=== PATIENT | female | born 1990 | race Caucasian/White ===

== ENCOUNTER 2018-12-29 20:00 | Emergency (ER) | payer OTHER ==
--- NOTE | 2018-12-29 20:11 | EDM.PDOC ---
ED HPI GENERAL MEDICAL PROBLEM - General Chief Complaint: Laceration Stated Complaint: Laceration to left hand Time Seen by Provider: 12/29/18 20:00 Source of Information: Reports: Patient, RN, RN Notes Reviewed History Limitations: Reports: No Limitations - History of Present Illness INITIAL COMMENTS - FREE TEXT/NARRATIVE: Patient presents to the ED at [facility] for the evaluation of a laceration to the left hand. Patient states this is a work related injury. While at work, the patient states a shot glass slipped out of her hand. As she tried to grab the glass, it broke causing the laceration. Patient denies any numbness, tingling. or paresthesia to the LUE. Has full ROM of the left hand. No tendon involvement. Patient is not sure of her Tetanus status. Onset: Today Onset Date: 12/29/18 - Related Data Allergies Allergy/AdvReac Type Severity Reaction Status Date / Time amoxicillin [Amoxicillin] Allergy Cannot Verified 12/29/18 20:07 Remember Sulfa (Sulfonamide Allergy Cannot Verified 12/29/18 20:07 Antibiotics) Remember Cat Dander Allergy Severe Hives Uncoded 12/29/18 20:07 Home Meds: Home Meds medroxyPROGESTERone Acetate [Depo-Provera] 150 mg IM ASDIRECTED 03/14/14 [ History] Past Medical History - Past Health History Medical/Surgical History: Denies Medical/Surgical History Psychiatric History: Reports: Addiction Other Psychiatric History: ETOH abuse ED ROS GENERAL - Review of Systems Review Of Systems: See Below Constitutional: Denies: Fever, Chills Respiratory: Denies: Shortness of Breath, Cough Cardiovascular: Denies: Chest Pain, Palpitations Skin: Reports: Wound Neurological: Reports: No Symptoms ED EXAM, SKIN/RASH Exam: See Below Exam Limited By: No Limitations General Appearance: Alert, No Apparent Distress Respiratory/Chest: No Respiratory Distress, Lungs Clear, Normal Breath Sounds Cardiovascular: Normal Peripheral Pulses, Regular Rate, Rhythm Peripheral Pulses: 2+: Radial (L), Radial (R) Neurological: Alert, Oriented Skin: Wound/Incision (3cm vertical laceration to the lateral left hand just below the thumg; low grade venous ooze; will require suture closure for optimal wound healing) ED SKIN PROCEDURES - Laceration/Wound Repair Left Hand Lac/Wound length In cm: 3 Appearance: Subcutaneous, Linear, Clean Distal NVT: Neuro & Vascular Intact, No Tendon Injury Anesthetic Type: Local Local Anesthesia - Lidocaine (Xylocaine): 2% with EPI Local Anesthetic Volume: 5cc Skin Prep: Chlorhexidine (Hibiciens), Saline Exploration/Debridement/Repair: Wound Explored, In a Bloodless Field, Explored to Base, No Foreign Material Found Closed with: Sutures Suture Size: 4-0 Suture Type: Nylon, Interrupted, Simple Sterile Dressing Applied: Nurse Tetanus Status Addressed: Yes Complications: No Course - Vital Signs Last Recorded V/S: Last Vital Signs Temp 36.9 C 12/29/18 20:07 Pulse 78 12/29/18 20:07 Resp 16 12/29/18 20:07 BP 145/119 H 12/29/18 20:07 Pulse Ox 99 12/29/18 20:07 - Orders/Labs/Meds Orders: Active Orders 24 hr Category Date Time Status Vaccines to be Administered [RC] PER UNIT ROUTINE Care 12/29/18 20:38 Ordered Diphth,Pertuss(Acell),Tet Vac [Adacel] Med 12/29/18 20:38 Once 0.5 ml IM .ONCE ONE Meds: Medications Discontinued Medications Generic Name Dose Route Start Last Admin Trade Name Freq PRN Reason Stop Dose Admin Lidocaine/Epinephrine 20 ml 12/29/18 20:11 12/29/18 20:15 Xylocaine 2% With Epinephrine 1:100,000 INJECT 12/29/18 20:12 20 ml ONETIME ONE Administration Departure - Departure Time of Disposition: 20:38 Disposition: Home, Self-Care 01 Condition: Good Clinical Impression: Encounter related to worker's compensation claim, Need for Tdap vaccination Hand laceration Qualifiers: Encounter type: initial encounter Foreign body presence: without foreign body Laterality: left Qualified Code(s): S61.412A - Laceration without foreign body of left hand, initial encounter - Discharge Information *PRESCRIPTION DRUG MONITORING PROGRAM REVIEWED*: Not Applicable *COPY OF PRESCRIPTION DRUG MONITORING REPORT IN PATIENT LEIGHANN: Not Applicable Instructions: Laceration Care, Adult, Sutured Wound Care, VIS, Tetanus, Diphtheria (Td); Tetanus, Diphtheria, Pertussis (Tdap) - CDC Forms: ED Department Discharge Additional Instructions: 1. Stay well hydrated and rest 2. Keep area clean and dry at all times 3. Keep covered for the next 24 hours, then leave open to air, but cover if possibility of getting wet 4. Sutures to stay in for 10 days 5. See your PCP for suture removal and laceration recheck 6. Call us with any questions or concerns - Problem List Review Problem List Initiated/Reviewed/Updated: Yes - My Orders Last 24 Hours: My Active Orders 12/29/18 20:38 Vaccines to be Administered [RC] PER UNIT ROUTINE Diphth,Pertuss(Acell),Tet Vac [Adacel] 0.5 ml IM .ONCE ONE - Assessment/Plan Last 24 Hours: My Active Orders 12/29/18 20:38 Vaccines to be Administered [RC] PER UNIT ROUTINE Diphth,Pertuss(Acell),Tet Vac [Adacel] 0.5 ml IM .ONCE ONE Assessment:: Hand laceration Encounter for workers comp claim Plan: Laceration sutured closed. Tolerated procedure well, no complications. Keep area clean and dry. Will keep out of work for two days. Suture to be removed in 10 days. Tetanus updated. Return to ED at symptoms warrant
[2018-12-29] MEDS: Lidocaine 2% with EPINEPHrine 1:100,000 20 ML MDV INJECT ONE (20:15)
[2018-12-29] MEDS: Diphtheria,Pertussis(Acell),Tetanus Vaccine 0.5 ML Syringe IM ONE (20:43)
== END 2018-12-29 20:49 | disposition home or self-care (01) ==
LOC: VM.ED 20:00
DX: S61.412A Laceration without foreign body of left hand, initial encounter (principal); Z23 Encounter for immunization; Z88.1 Allergy status to other antibiotic agents; Z88.2 Allergy status to sulfonamides; W25.XXXA Contact with sharp glass, initial encounter
CPT/HCPCS: 12002; 90471; 90715; 99283-25

== ENCOUNTER 2020-06-03 14:47 | Emergency (ER) | payer SELFPAY ==
--- NOTE | 2020-06-03 17:13 | EDM.PDOC ---
ED HPI GENERAL MEDICAL PROBLEM - General Chief Complaint: Behavioral/Psych Stated Complaint: ER Time Seen by Provider: 06/03/20 14:57 Source of Information: Reports: Patient History Limitations: Reports: No Limitations - History of Present Illness INITIAL COMMENTS - FREE TEXT/NARRATIVE: Pt. presents to ER at request of [facility] in [place]. Pt. is set up to start inpatient alcohol treatment there on Wednesday. She states that she drinks at least a pint of whiskey a day and has for years. Denies any suicidal or homicidal ideation. Denies any chest pain or shortness of breath. Pt. states that her last drink was this AM, at which time she had one beer. She states that she did drink heavily last night. She has not been experiencing any nausea or vomiting, and is currently not experiencing any DTs, shakes or other signs of alcohol withdrawl. Denies any abdominal pain or burning. Denies any melena, hematochezia, or hematemesis. Onset: Today Location: Reports: Generalized Generalized Pain Score (Numeric/FACES): 5 - Related Data Allergies Allergy/AdvReac Type Severity Reaction Status Date / Time amoxicillin [Amoxicillin] Allergy Cannot Verified 06/03/20 15:17 Remember Sulfa (Sulfonamide Allergy Cannot Verified 06/03/20 15:17 Antibiotics) Remember Cat Dander Allergy Severe Hives Uncoded 06/03/20 15:17 Home Meds: Home Meds . [No Known Home Meds] 06/03/20 [History] Past Medical History - Past Health History Medical/Surgical History: Denies Medical/Surgical History Psychiatric History: Reports: Addiction Other Psychiatric History: ETOH abuse Social & Family History - Family History Family Medical History: Noncontributory - Tobacco Use Smoking Status *Q: Current Every Day Smoker Years of Tobacco use: 16 Packs/Tins Daily: 1 Used Tobacco, but Quit: No - Caffeine Use Caffeine Use: Reports: None - Alcohol Use Days Per Week of Alcohol Use: 7 Number of Drinks Per Day: 5 Total Drinks Per Week: 35 Date of Last Drink: 06/03/20 Time of Last Drink: 09:00 - Recreational Drug Use Recreational Drug Use: Yes Drug Use in Last 12 Months: Yes Recreational Drug Type: Reports: Marijuana/Hashish Recreational Drug Use Frequency: Daily ED ROS GENERAL - Review of Systems Review Of Systems: See Below Constitutional: Reports: No Symptoms HEENT: Reports: No Symptoms Respiratory: Reports: No Symptoms Cardiovascular: Reports: No Symptoms Endocrine: Reports: No Symptoms GI/Abdominal: Reports: No Symptoms : Reports: No Symptoms Musculoskeletal: Reports: No Symptoms Skin: Reports: No Symptoms Neurological: Reports: No Symptoms Psychiatric: Reports: No Symptoms Hematologic/Lymphatic: Reports: No Symptoms Immunologic: Reports: No Symptoms ED EXAM, GENERAL - Physical Exam Exam: See Below Exam Limited By: No Limitations General Appearance: Alert, WD/WN, No Apparent Distress Eye Exam: Bilateral Eye: EOMI, Normal Fundi, Normal Inspection, PERRL Ears: Normal External Exam, Hearing Grossly Normal Throat/Mouth: Normal Inspection, Normal Lips, Normal Teeth, No Airway Compromise Head: Atraumatic, Normocephalic Neck: Non-Tender, Full Range of Motion Respiratory/Chest: No Respiratory Distress, Lungs Clear, Normal Breath Sounds, No Accessory Muscle Use, Chest Non-Tender Cardiovascular: Normal Peripheral Pulses, Regular Rate, Rhythm, No Edema, No JVD Peripheral Pulses: 4+: Radial (L) GI/Abdominal: Normal Bowel Sounds, Soft, Non-Tender, No Distention, No Mass (Female) Exam: Deferred Rectal (Female) Exam: Deferred Back Exam: Normal Inspection, Full Range of Motion Extremities: Normal Inspection, Normal Range of Motion, Non-Tender, No Pedal Edema, Normal Capillary Refill Neurological: Alert, Oriented, CN II-XII Intact, Normal Cognition, Normal Gait, Normal Reflexes, No Motor/Sensory Deficits Psychiatric: Normal Affect, Normal Mood Skin Exam: Warm, Dry, Intact, Normal Color, No Rash Lymphatic: No Adenopathy Course - Vital Signs Last Recorded V/S: Last Vital Signs Temp 36.9 C 06/03/20 14:57 Pulse 98 06/03/20 14:57 Resp 16 06/03/20 14:57 BP 143/102 H 06/03/20 15:01 Pulse Ox 95 06/03/20 14:57 Departure - Departure Time of Disposition: 15:20 Disposition: Home, Self-Care 01 Clinical Impression: Alcoholism /alcohol abuse - Discharge Information Instructions: Ondansetron oral dissolving tablet, Alcohol Abuse and Nutrition, Clonidine tablets Referrals: PCP,None [Primary Care Provider] - Forms: ED Department Discharge Additional Instructions: Zofran ODT 4mg 1 tab dissolved in mouth every 6-8 hours as needed for nausea Clonidine 0.1mg 2 tabs twice daily as needed for withdrawl Drink plenty of water, gatorade, powerade and make sure you are getting enough to eat Return to ER if you are unable to hold down fluids despite using the medications, if you have severe abdominal pain,weakness or other worrisome signs/symptoms. Sepsis Event Note (ED) - Evaluation Sepsis Screening Result: No Definite Risk - Focused Exam Vital Signs: Vital Signs Temp Pulse Resp BP Pulse Ox 06/03/20 15:01 143/102 H 06/03/20 14:57 36.9 C 98 16 95 - Problem List Review Problem List Initiated/Reviewed/Updated: Yes - Assessment/Plan Plan: Since she is not scheduled to start treatment until Wednesday, and due to the fact that she is currently asymptomatic, decision was made not to order any labs. She is also concerned because she doesn't have insurance. Advised her to follow-up in the clinic on or return to ER so we can determine what her labs are closer to admission. I did start the patient on clonidine 0.2mg twice daily for withdrawl symptoms and zofran ODT for nausea and vomiting. Pt. will be discharged, but will be admitted if she returns with inability to hold down fluids, agitation, DTs or other worrisome signs/symptoms. All questions were answered.
== END 2020-06-03 15:30 | disposition home or self-care (01) ==
LOC: VM.ED 14:47 → EEVIPCON 14:47 → VM.ED 15:30
DX: F10.20 Alcohol dependence, uncomplicated (principal); F17.210 Nicotine dependence, cigarettes, uncomplicated; Z88.1 Allergy status to other antibiotic agents; Z88.2 Allergy status to sulfonamides; Z91.09 Other allergy status, other than to drugs and biological substances
CPT/HCPCS: 99284; 99284-GF

== ENCOUNTER 2020-10-27 23:39 | Emergency (ER) | payer SELFPAY ==
--- NOTE | 2020-10-27 23:47 | EDM.PDOC ---
ED HPI GENERAL MEDICAL PROBLEM - General Chief Complaint: Head Injury Time Seen by Provider: 10/27/20 23:42 Source of Information: Reports: Patient History Limitations: Reports: No Limitations - History of Present Illness INITIAL COMMENTS - FREE TEXT/NARRATIVE: Pt. states that she fell in the bathroom at home tonight. She states that her friends present at the residence called 911. She states that she has been drinking tonight. Denies any LOC. She is alert to time, date and place. Complains of some superficial headache. Denies any neck pain. Denies any nausea, vomiting, numbness/tingling in extremities, difficulty with speech. She ambulated out to ambulance. Refused to wear c-collar that was placed prophylactically by EMS. She is not anticoagulated. Onset: Today Onset Date: 10/27/20 Location: Reports: Head - Related Data Allergies Allergy/AdvReac Type Severity Reaction Status Date / Time amoxicillin [Amoxicillin] Allergy Cannot Verified 10/27/20 23:40 Remember Sulfa (Sulfonamide Allergy Cannot Verified 10/27/20 23:40 Antibiotics) Remember Cat Dander Allergy Severe Hives Uncoded 06/03/20 15:17 Home Meds: Home Meds . [No Known Home Meds] 06/03/20 [History] Past Medical History - Past Health History Medical/Surgical History: Denies Medical/Surgical History Psychiatric History: Reports: Addiction Other Psychiatric History: ETOH abuse Social & Family History - Family History Family Medical History: No Pertinent Family History - Caffeine Use Caffeine Use: Reports: None ED ROS GENERAL - Review of Systems Review Of Systems: See Below Constitutional: Reports: No Symptoms HEENT: Reports: Other (See HPI. Pain to R temporal area.) Respiratory: Reports: No Symptoms Cardiovascular: Reports: No Symptoms Endocrine: Reports: No Symptoms GI/Abdominal: Reports: No Symptoms : Reports: No Symptoms Musculoskeletal: Reports: No Symptoms Skin: Reports: No Symptoms Neurological: Reports: No Symptoms Psychiatric: Reports: No Symptoms Hematologic/Lymphatic: Reports: No Symptoms Immunologic: Reports: No Symptoms ED EXAM, HEAD INJURY - Physical Exam Exam: See Below Exam Limited By: No Limitations General Appearance: Alert, WD/WN, No Apparent Distress Head: Other (approx. 1-1.5 cm very superficial laceration to R temporal area with surrounding hematoma. No obvious underlying bony deformity. ) Nexus Criteria: No: Posterior, Midline Cervical Tenderness, Altered Level of Consciousness, Focal Neurological Deficit, Painful Distraction Injuries Eyes: Bilateral Eye: EOMI, Normal Fundi, Normal Inspection, PERRL Ears: Normal Canal, Hearing Grossly Normal, Normal TMs Neck: Non-Tender, Full Range of Motion, Normal Alignment, Normal Inspection Respiratory: No Respiratory Distress, Lungs Clear, Normal Breath Sounds, No Accessory Muscle Use, Chest Non-Tender Cardiovascular: Normal Peripheral Pulses, Regular Rate, Rhythm, No Edema, No JVD, No Murmur, No Rub Back Exam: Normal Inspection, Full Range of Motion Extremities: Normal Inspection, Normal Range of Motion, Non-Tender, No Pedal Edema, Normal Capillary Refill Neurologic: patient services specialist II-XII nml As Tested, No Motor/Sensory Deficits, Alert, Normal Mood/Affect, Oriented x 3 Skin: Normal Color, Warm/Dry - Kimberly Coma Score Best Eye Response ([place]): (4) Open Spontaneously Best Verbal Response ([place]): (5) Oriented Best Motor Response ([place]): (6) Obeys Commands Kimberly Total: 15 Course - Orders/Labs/Meds Orders: Active Orders 24 hr Category Date Time Status Head wo Cont [CT] Stat Exams 10/27/20 23:40 Ordered - Re-Assessments/Exams Free Text/Narrative Re-Assessment/Exam: 10/27/20 23:53 Pt. was evaluated. Discussed findings with patient. Pt. refused CT scan of head or neck, as she does not have any insurance to pay for this. Discussed the possibility of potential underlying injury that is not immediately evident, particularly since she has been drinking tonight. Pt. understands and wishes to not have this imaging performed and understands the reasons for performing CT scans. Again, patient is alert, oriented to time, date and place and refuses. Departure - Departure Time of Disposition: 23:59 Disposition: Against Medical Advice 07 Clinical Impression: Hematoma, Superficial laceration - Discharge Information Instructions: Head Injury, Adult Forms: ED Department Discharge Additional Instructions: Home to rest. Return to ER if you decide you want further care. Also return if you have increased headache, confusion, vomiting or other worrisome signs/symptoms. - Problem List Review Problem List Initiated/Reviewed/Updated: Yes - My Orders Last 24 Hours: My Active Orders 10/27/20 23:40 Head wo Cont [CT] Stat - Assessment/Plan Last 24 Hours: My Active Orders 10/27/20 23:40 Head wo Cont [CT] Stat Plan: Pt. was urged to undergo imaging but refuses. Was advised that she could have an underlying life-threatening injury which she understands. She was given an invitation to return at any time and was urged to return if she has any nausea, vomiting, headache, confusion. She states that she will return as needed. Pt. signed AMA form. Pt. will have a friend that has not been consuming alcohol stay with her tonight.
== END 2020-10-27 23:55 | disposition left against medical advice (07) ==
LOC: VM.ED 23:39
DX: S01.81XA Laceration without foreign body of other part of head, initial encounter (principal); Z88.2 Allergy status to sulfonamides; Z91.048 Other nonmedicinal substance allergy status; Z88.0 Allergy status to penicillin; W18.30XA Fall on same level, unspecified, initial encounter; Y92.002 Bathroom of unspecified non-institutional (private) residence as the place of occurrence of the external cause
CPT/HCPCS: 99284

== ENCOUNTER 2020-11-02 20:52 | Emergency (ER) | payer SELFPAY ==
[2020-11-02] MEDS: Fluorescein 1 MG Ophth Strip EYERT ONE (21:25)
--- NOTE | 2020-11-02 22:00 | EDM.PDOC ---
ED HPI GENERAL MEDICAL PROBLEM - General Chief Complaint: Head Injury Stated Complaint: EYE INJURY Time Seen by Provider: 11/02/20 21:00 Source of Information: Reports: Patient History Limitations: Reports: No Limitations - History of Present Illness INITIAL COMMENTS - FREE TEXT/NARRATIVE: PtChaparro presents to ER with complaints of headache and R eye pain. She was seen in the ER on 10/28 following a fall. She sustained some abrasions and scalp contusions. At that time, she refused imaging at that time and signed out AMA (please refer to ER note from that time). She is a daily drinker. Denies any new trauma to the area. She states that she has been experiencing headache intermittently since that time. Denies any fever or chills. No chest pain or shortness of breath. Denies any neck pain. No numbness/tingling in extremities. No problems with speech/ambulation. Onset: Today Onset Date: 11/02/20 Location: Reports: Head, Face Headache Pain Score (Numeric/FACES): 6 - Related Data Allergies Allergy/AdvReac Type Severity Reaction Status Date / Time amoxicillin [Amoxicillin] Allergy Cannot Verified 11/02/20 21:05 Remember Sulfa (Sulfonamide Allergy Cannot Verified 11/02/20 21:05 Antibiotics) Remember Cat Dander Allergy Severe Hives Uncoded 11/02/20 21:05 Home Meds: Home Meds . [No Known Home Meds] 06/03/20 [History] Past Medical History - Past Health History Medical/Surgical History: Denies Medical/Surgical History Psychiatric History: Reports: Addiction Other Psychiatric History: ETOH abuse Social & Family History - Family History Family Medical History: No Pertinent Family History - Tobacco Use Tobacco Use Status *Q: Current Every Day Tobacco User Years of Tobacco use: 16 Packs/Tins Daily: 1 - Caffeine Use Caffeine Use: Reports: None - Alcohol Use Days Per Week of Alcohol Use: 7 Number of Drinks Per Day: 6 Total Drinks Per Week: 42 - Recreational Drug Use Recreational Drug Use: Yes Drug Use in Last 12 Months: Yes Recreational Drug Type: Reports: Marijuana/Hashish Recreational Drug Use Frequency: Daily ED ROS GENERAL - Review of Systems Review Of Systems: See Below Constitutional: Reports: No Symptoms HEENT: Reports: Eye Pain Respiratory: Reports: No Symptoms Cardiovascular: Reports: No Symptoms Endocrine: Reports: No Symptoms GI/Abdominal: Reports: No Symptoms : Reports: No Symptoms Musculoskeletal: Reports: No Symptoms Skin: Reports: No Symptoms Neurological: Reports: Dizziness, Headache. Denies: Confusion, Numbness, Paresthesia, Seizure, Syncope, Tingling, Tremors, Trouble Speaking, Difficulty Walking, Weakness, Change in Speech, Gait Disturbance Psychiatric: Reports: No Symptoms Hematologic/Lymphatic: Reports: No Symptoms Immunologic: Reports: No Symptoms ED EXAM, HEAD INJURY - Physical Exam Exam: See Below Exam Limited By: No Limitations General Appearance: Alert, WD/WN, No Apparent Distress Head: Atraumatic, Scalp Swelling, Scalp Hematoma Eyes: Right Eye: Other (periorbital R ecchymosis and swelling. No entrapment of the eye. Floursecin exam with black light did not reveal any obvious corneal abrasion.), Bilateral Eye: EOMI, Normal Fundi, Normal Inspection, PERRL Ears: Normal External Exam, Normal Canal, Hearing Grossly Normal, Normal TMs Nose: No Blood Throat/Mouth: Normal Inspection, Normal Lips, Normal Teeth, Normal Gums, Normal Oropharynx, Normal Voice, No Airway Compromise Neck: Non-Tender, Full Range of Motion, Normal Alignment, Normal Inspection Respiratory: No Respiratory Distress, No Accessory Muscle Use Cardiovascular: Regular Rate, Rhythm Course - Vital Signs Last Recorded V/S: Last Vital Signs Temp 36.9 C 11/02/20 21:00 Pulse 111 H 11/02/20 21:00 Resp 16 11/02/20 21:00 BP 139/90 11/02/20 21:00 Pulse Ox 95 11/02/20 21:00 - Orders/Labs/Meds Orders: Active Orders 24 hr Category Date Time Status Head wo Cont [CT] Stat Exams 11/02/20 21:07 Taken Meds: Medications Discontinued Medications Generic Name Dose Route Start Last Admin Trade Name Freq PRN Reason Stop Dose Admin Fluorescein Sodium 1 mg 11/02/20 21:17 Ful-Gali EYERT 11/02/20 21:18 ONETIME ONE - Radiology Interpretation Free Text/Narrative:: CT head without contrast obtained. No obvious intracranial pathology noted. Evidence of scalp contusion. No skull fracture. Departure - Departure Time of Disposition: 22:20 Disposition: Home, Self-Care 01 Clinical Impression: Concussion injury of brain, Scalp contusion - Discharge Information Instructions: Head Injury, Adult, Facial or Scalp Contusion, [id number] Referrals: PCP,None [Primary Care Provider] - Forms: ED Department Discharge Additional Instructions: Home to rest. Ibuprofen 200mg 3 tabs every 6 hours as needed for discomfort. It could take some time for the symptoms to completely resolve. Minimize possibility of a second injury to the area (no high impact activities, contact sports or activities that would predispose you to falling). Sepsis Event Note (ED) - Evaluation Sepsis Screening Result: No Definite Risk - Focused Exam Vital Signs: Vital Signs Temp Pulse Resp BP Pulse Ox 11/02/20 21:00 36.9 C 111 H 16 139/90 95 - Problem List Review Problem List Initiated/Reviewed/Updated: Yes - My Orders Last 24 Hours: My Active Orders 11/02/20 21:07 Head wo Cont [CT] Stat - Assessment/Plan Last 24 Hours: My Active Orders 11/02/20 21:07 Head wo Cont [CT] Stat Plan: Home to rest. Ibuprofen 200mg 3 tabs every 6 hours as needed for discomfort. It could take some time for the symptoms to completely resolve. Minimize possibility of a second injury to the area (no high impact activities, contact sports or activities that would predispose you to falling).
--- NOTE | 2020-11-03 10:15 | CT ---
[id number] CT/CT Head WO IV EXAM: CT Head WO IV CLINICAL DATA: HEAD TRAUMA 6 DAYS AGO, STILL HAVING HEADACHES COMPARISON STUDY: None FINDINGS: No intracranial hemorrhage, extra-axial fluid collection, mass, or acute ischemia. Generalized parenchymal atrophy with scattered areas of nonspecific white matter disease, commonly seen as sequela of chronic microvascular ischemia. Right frontal scalp hematoma without underlying calvarial fracture. Paranasal sinuses and mastoid air cells are clear. IMPRESSION: No acute intracranial findings. Jeffery Jett DO 11/03/20 1014 Thank you for allowing us to participate in the care of your patient.
== END 2020-11-02 22:35 | disposition home or self-care (01) ==
LOC: VM.ED 20:52
DX: S06.0X9A Concussion with loss of consciousness of unspecified duration, initial encounter (principal); S00.03XA Contusion of scalp, initial encounter; S00.83XA Contusion of other part of head, initial encounter; F17.210 Nicotine dependence, cigarettes, uncomplicated; Z88.0 Allergy status to penicillin; Z88.2 Allergy status to sulfonamides; Z91.048 Other nonmedicinal substance allergy status; W19.XXXA Unspecified fall, initial encounter
CPT/HCPCS: 70450; 99283-25; 99284

== ENCOUNTER 2021-05-05 10:11 | Emergency (ER) | payer SELFPAY ==
--- NOTE | 2021-05-05 10:29 | EDM.PDOC ---
ED HPI GENERAL MEDICAL PROBLEM - General Stated Complaint: LEFT ARM PAIN Time Seen by Provider: 05/05/21 10:16 Source of Information: Reports: Patient - History of Present Illness INITIAL COMMENTS - FREE TEXT/NARRATIVE: Ada is a 30 y/o female who is brought to the ER via POV by her mother for complaints of left arm pain. She reports that the pain has been going for at least a month now. She reports the pain starting at night, but seems worse in the mornings when she gets up. She does describe it as a numb and tingly feeling, but then she gets shooting pains into her elbow and shoulder region. Denies any specific injury. She was tried a few doses of Motrin with little relief. She reports the symptoms come over nigh while sleeping. Sometimes she has trouble holding onto objects with her left hand and feels very weak. - Related Data Allergies Allergy/AdvReac Type Severity Reaction Status Date / Time amoxicillin [Amoxicillin] Allergy Cannot Verified 11/02/20 21:05 Remember Sulfa (Sulfonamide Allergy Cannot Verified 11/02/20 21:05 Antibiotics) Remember Cat Dander Allergy Severe Hives Uncoded 11/02/20 21:05 Home Meds: Home Meds . [No Known Home Meds] 06/03/20 [History] Past Medical History - Past Health History Medical/Surgical History: Denies Medical/Surgical History Psychiatric History: Reports: Addiction Other Psychiatric History: ETOH abuse Social & Family History - Family History Family Medical History: No Pertinent Family History - Caffeine Use Caffeine Use: Reports: None Review of Systems - Review of Systems Review Of Systems: See Below Constitutional: Reports: No Symptoms Eyes: Reports: No Symptoms Ears: Reports: No Symptoms Nose: Reports: No Symptoms Mouth/Throat: Reports: No Symptoms Respiratory: Reports: No Symptoms Cardiovascular: Reports: No Symptoms GI/Abdominal: Reports: No Symptoms Genitourinary: Reports: No Symptoms Musculoskeletal: Reports: Arm Pain (Left) Skin: Reports: No Symptoms, Wound Neurological: Reports: Numbness (left hand), Tingling Psychiatric: Reports: No Symptoms ED EXAM, GENERAL - Physical Exam Exam: See Below General Appearance: Alert, WD/WN, No Apparent Distress (Adult female) Ears: Hearing Grossly Normal Nose: Normal Inspection Throat/Mouth: Normal Voice Head: Atraumatic, Normocephalic Respiratory/Chest: No Respiratory Distress Cardiovascular: Regular Rate, Rhythm GI/Abdominal: Soft (Female) Exam: Deferred Rectal (Female) Exam: Deferred Back Exam: Normal Inspection Extremities: Other (left arrm/wrist +Phalens test, +manual carpal compression test) Neurological: Alert, Oriented, CN II-XII Intact, Normal Cognition Psychiatric: Normal Affect Skin Exam: Warm, Dry, Intact, Normal Color Course - Vital Signs Text/Narrative:: 1016 The patient was seen by the BOND[facility] SUPERVISOR. Suspect Carpal tunnel syndrome on clinical exam. Labs ordered to rule out other causes of the paraesthesias. 1125 Labs reviewed. Glucose slightly elevated otherwise all labs negative. Favor Carpal Tunnel Syndrome. Patient placed in left wrist splint. She was given Toradol 30mg IM for pain. Will have her follow up with a PCP or [facility] to get in for further specialty diagnostic testing. Written instructions were given and she left the ER in stable condition. Last Recorded V/S: Last Vital Signs Temp 36.8 C 05/05/21 10:20 Pulse 58 L 05/05/21 10:20 Resp 16 05/05/21 10:20 BP 127/94 H 05/05/21 10:20 Pulse Ox 98 05/05/21 10:20 - Orders/Labs/Meds Labs: Laboratory Tests 05/05/21 05/05/21 Range/Units 10:36 10:36 WBC 5.7 (4.0-10.0) x10^3/uL RBC 4.03 (4.00-5.50) x10^6/uL Hgb 13.8 (12.0-16.0) g/dL Hct 39.1 (33.0-47.0) % MCV 97.0 H (78.0-93.0) fL MCH 34.2 H (26.0-32.0) pg MCHC 35.3 (32.0-36.0) g/dL RDW Coeff of Bar 12.0 (10.0-15.0) % Plt Count 198 (130-400) x10^3/uL Neut % (Auto) 48.6 L (50.0-80.0) % Lymph % (Auto) 34.5 (25.0-50.0) % [place] % (Auto) 11.4 H (2.0-11.0) % Eos % (Auto) 4.6 H (0.0-4.0) % Baso % (Auto) 0.9 (0.2-1.2) % Sodium 140 (136-145) mmol/L Potassium 3.8 (3.5-5.1) mmol/L Chloride 106 (98-107) mmol/L Carbon Dioxide 24 (21-32) mmol/L Anion Gap 13.8 (5-15) mmol/L BUN 17 (7-18) mg/dL Creatinine 0.7 (0.55-1.02) mg/dL Est Cr Clr Drug Dosing 112.57 mL/min Estimated GFR (MDRD) > 60 Glucose 117 H (70-99) mg/dL Calcium 8.6 (8.5-10.1) mg/dL Corrected Calcium 8.9 (8.5-10.1) mg/dL Magnesium 1.8 (1.8-2.4) mg/dL Total Bilirubin 0.4 (0.2-1.0) mg/dL AST 19 (15-37) U/L ALT 26 (14-59) U/L Alkaline Phosphatase 41 L (46-116) U/L Total Protein 7.1 (6.4-8.2) g/dL Albumin 3.6 (3.4-5.0) g/dL Globulin 3.5 Albumin/Globulin Ratio 1.03 TSH, Ultra Sensitive 0.422 (0.358-3.74) uIU/mL Ethyl Alcohol < 3 (0-3) mg/dL Meds: Medications Discontinued Medications Generic Name Dose Route Start Last Admin Trade Name Freq PRN Reason Stop Dose Admin Ketorolac Tromethamine 30 mg 05/05/21 11:25 Ketorolac 30 Mg/Ml Sdv IM 05/05/21 11:26 ONETIME ONE Departure - Departure Time of Disposition: 11:27 Disposition: Home, Self-Care 01 Clinical Impression: Left arm numbness - Discharge Information *PRESCRIPTION DRUG MONITORING PROGRAM REVIEWED*: Not Applicable *COPY OF PRESCRIPTION DRUG MONITORING REPORT IN PATIENT LEIGHANN: Not Applicable Instructions: Carpal Tunnel Syndrome, [id number] Additional Instructions: -Ibuprofen 200mg 3 tablets oral every 6 hours for the next 7 days then as needed -Acetaminophen 325mg 3 tablets oral every 6 hours as needed for pain. Use between ibuprofen) -Apply ice packs to the wrist region. -Left wrist splint at night and as needed through the day. -Activity as tolerates, but take frequent breaks and wear your wrist splint as much as possible. -Follow up at the [facility] in [place] to get seen and referred to a physician for care. -Return as needed to the ER. Sepsis Event Note (ED) - Focused Exam Vital Signs: Vital Signs Temp Pulse Resp BP Pulse Ox 05/05/21 10:20 36.8 C 58 L 16 127/94 H 98
[2021-05-05 11:11] LABS: CHLORIDE,CL 106 mmol/L (98-107); SODIUM,NA 140 mmol/L (136-145)
[2021-05-05 11:16] LABS: ANION GAP 13.8 mmol/L (5-15)
[2021-05-05] MEDS: Ketorolac 30 MG/ML SDV IM ONE (11:25)
[2021-05-08] MEDS ORDERED: Nitroglycerin 0.4 MG Tab.SL SL ONE (08:49)
== END 2021-05-05 11:45 | disposition home or self-care (01) ==
LOC: VM.ED 10:11
DX: R20.0 Anesthesia of skin (principal); M79.602 Pain in left arm; Z88.0 Allergy status to penicillin; Z88.2 Allergy status to sulfonamides; Z91.048 Other nonmedicinal substance allergy status
CPT/HCPCS: 36415; 80053; 80307; 83735; 84443; 85025; 96372; 99283; 99284; J1885

== ENCOUNTER 2023-01-17 20:25 | Emergency (ER) | payer SELFPAY ==
[2023-01-17] MEDS ORDERED: Ondansetron 4 MG/2 ML SDV IVPUSH ONE (20:47)
[2023-01-17] MEDS ORDERED: Sodium Chloride 0.9% 1,000 ML IV ONE (20:49)
[2023-01-17 21:37] LABS: CHLORIDE,CL 104 mmol/L (98-107); SODIUM,NA 144 mmol/L (136-145)
[2023-01-17 21:38] LABS: ANION GAP 15.5 mmol/L (5-15); ESTIMATED GFR 87 mL/min (>=60)
[2023-01-17] MEDS ORDERED: Take Home: Ondansetron 4 MG Tab.DIS, 5 Tab Pack PO ONE (22:10)
== END 2023-01-17 22:30 | disposition home or self-care (01) ==
LOC: VM.ED 20:25
DX: R11.2 Nausea with vomiting, unspecified (principal); Z88.0 Allergy status to penicillin; Z88.2 Allergy status to sulfonamides; Z91.048 Other nonmedicinal substance allergy status
CPT/HCPCS: 80053; 80307; 83690; 85025; 96361; 96374; 99284; J2405; J7030; Q0162; 99283